=== PATIENT | female | born 2000 | race Caucasian/White ===

== ENCOUNTER 2018-05-21 13:10 | Emergency (ER) | payer OTHER, SELFPAY ==
[2018-05-21 13:25] VITALS: BP 111/57; PULSE 82; RESP 16; TEMP 36.7; O2SAT 99
--- NOTE | 2018-05-21 14:38 | W.ED.GENAD ---
Discharge Plan Disposition Patient Disposition: HOME Discharge Details Chief Complaint: Trauma Clinical Impression: Shoulder subluxation, left, Cervical strain, acute Primary Care Provider: Bess,Local ED Provider: Peng Hastings Home Meds and New Rx's Prescriptions: Continued bupropion HCl 100 mg Tablet 100 mg PO DAILY RF: 0 albuterol sulfate 90 mcg/actuation Hfa Aerosol Inhaler 2 puff INHALATION Q6H PRNRF: 0 Discharge Instructions Instructions: Cervical Strain (ED), Shoulder Sprain (ED) Additional Instructions: Please use shoulder sling for the next 1 week. Be sure to remove your arm from the sling and perform pendulum exercises as discussed a few times a day. If pain persist after this week, please follow-up with your doctor or bombsight specialist. Where neck brace as needed for comfort. No sports or physical activities until symptoms completely resolved. Please take ibuprofen over the counter - dose according to label. Please contact your primary care physician to arrange follow-up. Return to the ER for any worsening or new concerning symptoms. Stand Alone Forms: Work Release Discharge Data Discharge Date/Time-TO BE ENTERED AT DEPARTURE: 05/21/18 14:58 Medical Decision Making 17-year-old female here after fall while snowboarding yesterday with injury to her left shoulder. Patient has some tenderness in her left posterior lateral paraspinal low cervical muscles. She has no midline spinal tenderness. Cervical spine cleared. Suspect strain. Patient has no left shoulder deformity or focal tenderness. There is no swelling. She has good range of motion. I do not believe imaging is indicated. Suspect shoulder subluxation. Will provide sling. Discussed pendulum exercises and anti-inflammatory medications. Usual customary discharge instructions were provided. HPI General Mode of arrival: ambulatory. Date/Time Provider Initiated Documentation: 05/21/18 13:26. Limitations to Documentation: no limitations. Information obtained by: patient. HPI Narrative: 17-year-old female presents 1 day after fall while snowboarding with chief complaint of left shoulder pain. Patient notes she fell forward and landed on her chest and believe she popped her left shoulder outbut that it popped back in immediately after injury. Pain is mild. Pain is worse with movement of her shoulder. No associated numbness or weakness. Patient did hit her head and was not wearing a helmet. She did not lose consciousness. She has no headache. No midline posterior neck pain. She does have some pain lateral left neck. Related Data Home Medications Medication Instructions Recorded Confirmed albuterol sulfate 2 puff INHALATION Q6H PRN 05/21/18 05/21/18 bupropion HCl 100 mg PO DAILY 05/21/18 05/21/18 Allergies Allergy/AdvReac Type Severity Reaction Status Date / Time pistachio nut Allergy Swelling/Ed Unverified 05/21/18 13:23 leydi General Stated Complaint: Trauma TIO: 3 Review of Systems Cardiovascular Denies chest pain and Denies dyspnea Respiratory Denies dyspnea Gastrointestinal Denies abdominal pain and Reports nausea Musculoskeletal Reports as per HPI and Denies numbness Neurologic Denies numbness and Denies paresthesias PFSH Social History Smoking and Tabacco status: Never Exam Const General: cooperative and no acute distress HENMT Head: normocephalic and atraumatic Mouth: moist mucous membranes Neck Neck: full ROM, trachea midline, supple and tender (Mild tenderness left lower posterior lateral para spinal) Resp Auscultation: clear to auscultation bilaterally, no rales, no rhonchi and no wheezes Cardio Rate: regular rate and not tachycardic Rhythm: regular rhythm GI Palpation: soft, not firm, no guarding, no masses, not rigid and nontender Skin General skin exam: no rashes or lesions noted Neuro General: alert, awake, oriented x3 and tone normal Extrem General: no edema Left upper extremity: shoulder/upper arm Details: axillary nerve sensory function normal and normal ROM (With pain on rotation and hyperextension); no tenderness, no swelling, no crepitus and no deformity Course Vital Signs Temperature 36.7 C 05/21/18 13:25 Pulse 82 05/21/18 13:25 Respiratory Rate 16 05/21/18 13:25 Blood Pressure 111/57 L 05/21/18 13:25 Pulse Oximetry 99 05/21/18 13:25 Temperature 36.7 C 05/21/18 13:25 Temperature Source Temporal Artery Scan 05/21/18 13:25 Pulse 82 05/21/18 13:25 Respiratory Rate 16 05/21/18 13:25 Respiratory Effort Non-Labored 05/21/18 13:25 Blood Pressure 111/57 L 05/21/18 13:25 Blood Pressure Position Sitting 05/21/18 13:25 Pulse Oximetry 99 05/21/18 13:25 Oxygen Delivery Method Room Air 05/21/18 13:25 Oxygen Flow Rate 0 05/21/18 13:25 Pain Level 7 05/21/18 13:25
--- NOTE | 2018-05-21 14:47 | ED.GENADUL_ITS ---
Discharge Plan Disposition Patient Disposition: HOME Discharge Details Chief Complaint: Trauma Clinical Impression: Shoulder subluxation, left, Cervical strain, acute Primary Care Provider: Bess,Local ED Provider: Peng Hastings Home Meds and New Rx's Prescriptions: Continued bupropion HCl 100 mg Tablet 100 mg PO DAILY RF: 0 albuterol sulfate 90 mcg/actuation Hfa Aerosol Inhaler 2 puff INHALATION Q6H PRNRF: 0 Discharge Instructions Instructions: Cervical Strain (ED), Shoulder Sprain (ED) Additional Instructions: Please use shoulder sling for the next 1 week. Be sure to remove your arm from the sling and perform pendulum exercises as discussed a few times a day. If pain persist after this week, please follow-up with your doctor or hazardous waste management specialist. Where neck brace as needed for comfort. No sports or physical activities until symptoms completely resolved. Please take ibuprofen over the counter - dose according to label. Please contact your primary care physician to arrange follow-up. Return to the ER for any worsening or new concerning symptoms. Stand Alone Forms: Work Release Discharge Data Discharge Date/Time-TO BE ENTERED AT DEPARTURE: 05/21/18 14:58 Medical Decision Making 17-year-old female here after fall while snowboarding yesterday with injury to her left shoulder. Patient has some tenderness in her left posterior lateral paraspinal low cervical muscles. She has no midline spinal tenderness. Cervical spine cleared. Suspect strain. Patient has no left shoulder deformity or focal tenderness. There is no swelling. She has good range of motion. I do not believe imaging is indicated. Suspect shoulder subluxation. Will provide sling. Discussed pendulum exercises and anti-inflammatory medications. Usual customary discharge instructions were provided. HPI General Mode of arrival: ambulatory . Date/Time Provider Initiated Documentation: 05/21/18 13:26 . Limitations to Documentation: no limitations . Information obtained by: patient . HPI Narrative: 17-year-old female presents 1 day after fall while snowboarding with chief complaint of left shoulder pain. Patient notes she fell forward and landed on her chest and believe she popped her left shoulder outbut that it popped back in immediately after injury. Pain is mild. Pain is worse with movement of her shoulder. No associated numbness or weakness. Patient did hit her head and was not wearing a helmet. She did not lose consciousness. She has no headache. No midline posterior neck pain. She does have some pain lateral left neck. Related Data Home Medications Medication Instructions Recorded Confirmed albuterol sulfate 2 puff INHALATION Q6H PRN 05/21/18 05/21/18 bupropion HCl 100 mg PO DAILY 05/21/18 05/21/18 Allergies Allergy/AdvReac Type Severity Reaction Status Date / Time pistachio nut Allergy Swelling/Ed Unverified 05/21/18 13:23 leydi General Stated Complaint: Trauma TIO: 3 Review of Systems Cardiovascular Denies chest pain and Denies dyspnea Respiratory Denies dyspnea Gastrointestinal Denies abdominal pain and Reports nausea Musculoskeletal Reports as per HPI and Denies numbness Neurologic Denies numbness and Denies paresthesias PFSH Social History Smoking and Tabacco status: Never Exam Const General: cooperative and no acute distress HENMT Head: normocephalic and atraumatic Mouth: moist mucous membranes Neck Neck: full ROM, trachea midline, supple and tender (Mild tenderness left lower posterior lateral para spinal) Resp Auscultation: clear to auscultation bilaterally, no rales, no rhonchi and no wheezes Cardio Rate: regular rate and not tachycardic Rhythm: regular rhythm GI Palpation: soft, not firm, no guarding, no masses, not rigid and nontender Skin General skin exam: no rashes or lesions noted Neuro General: alert, awake, oriented x3 and tone normal Extrem General: no edema Left upper extremity: shoulder/upper arm Details: axillary nerve sensory function normal and normal ROM (With pain on rotation and hyperextension); no tenderness, no swelling, no crepitus and no deformity Course Vital Signs Temperature 36.7 C 05/21/18 13:25 Pulse 82 05/21/18 13:25 Respiratory Rate 16 05/21/18 13:25 Blood Pressure 111/57 L 05/21/18 13:25 Pulse Oximetry 99 05/21/18 13:25 Temperature 36.7 C 05/21/18 13:25 Temperature Source Temporal Artery Scan 05/21/18 13:25 Pulse 82 05/21/18 13:25 Respiratory Rate 16 05/21/18 13:25 Respiratory Effort Non-Labored 05/21/18 13:25 Blood Pressure 111/57 L 05/21/18 13:25 Blood Pressure Position Sitting 05/21/18 13:25 Pulse Oximetry 99 05/21/18 13:25 Oxygen Delivery Method Room Air 05/21/18 13:25 Oxygen Flow Rate 0 05/21/18 13:25 Pain Level 7 05/21/18 13:25
== END 2018-05-21 14:58 | disposition home or self-care (01) ==
PROVIDERS: Emergency Provider Student in an Organized Health Care Education/Training Program
DX: S16.1XXA Strain of muscle, fascia and tendon at neck level, initial encounter (principal); S43.002A Unspecified subluxation of left shoulder joint, initial encounter; V00.311A Fall from snowboard, initial encounter; Y93.23 Activity, snow (alpine) (downhill) skiing, snowboarding, sledding, tobogganing and snow tubing
CPT/HCPCS: 99283; L0120; L0172; L3650

== ENCOUNTER 2019-02-06 12:00 | Observation (INO) | payer OTHER, SELFPAY ==
[2019-02-06] VITALS (14 sets, daily range): BP systolic 101–131; BP diastolic 63–95; PULSE 74–120; RESP 14–20; TEMP 36.7–37.2; O2SAT 98–100
[2019-02-06 12:18] LABS: Bilirubin Negative (Negative); Blood Negative (Negative); Clarity Clear (Clear); Glucose Negative (Negative); Ketones Negative (Negative); Leukocyte Esterase Trace (Negative); Nitrite Negative (Negative); Urobilinogen 0.2 EU/dL (Up TO 0.2)
[2019-02-06 12:28] LABS: Bacteria Few HPF (Negative); C & S Indicated? No/Sq. Contamination; Casts Negative LPF (Negative); Crystals Negative HPF (Negative); Epithelial Cells Moderate HPF (Negative); Mucus Trace (Negative); RBC Negative (0-2); WBC 0-2 HPF (0-5)
--- NOTE | 2019-02-06 12:41 | ED.GENADUL_ITS ---
Discharge Plan Disposition Patient Disposition: HOME Condition: Good Discharge Details Chief Complaint: Abd Prob Clinical Impression: Acute appendicitis Admit Date/Time: 02/06/19 21:35 Admit Provider: Shoshana Green Attending Provider: Shoshana Green Primary Care Provider: Bess,[facility] ED Provider: Joe Rodriguez Discharge Data Discharge Date/Time-TO BE ENTERED AT DEPARTURE: 02/06/19 19:10 Medical Decision Making <BUDDY Swan - Last Filed: 02/07/19 16:32> Is a very pleasant 18-year-old patient who does have a history of ovarian cyst who presents with right lower quadrant tenderness which does feel similar to previous ovarian cyst pain. Patient reports lower abdominal pain which she noted 3 days ago lasting several hours which did improve. No associated changes in bowels, fevers chills. Patient did report mild nausea associated. Pain improved 3 days ago she did have mild food aversion since that time. Patient reports today return of abdominal discomfort. Worse with ambulating, worse when sitting in the car hitting bumps. Patient reports mild improvement when laying still. No p.o. intake today, decreased appetite, mild nausea present without vomiting. Again no fevers or chills. On exam patient has notable right lower quadrant tenderness. Denies vaginal discharge or bleeding. Would prefer to decline pelvic exam at this time. Patient is on control. Denies urinary symptoms associated. Labs ordered as well as ultrasound initially to identify ovary. Patient has a notable leukocytosis. Patient's initial ultrasound does not reveal obvious ovarian cyst or torsion on the right. Given patient's leukocytosis we will order CT scan for concern of possible appendicitis. Patient signed out pending CT scan with IV and oral contrast. <BUDDY Reeves - Last Filed: 02/06/19 21:55> Patient received in signout from Sandi Kelley PA-C. See her note for complete HPI and PE details. In brief, patient is a 18-year-old female with no significant past medical history other than ovarian cyst who presents to the emergency department with right lower quadrant abdominal pain for the last 3 days intermittent in nature. She denies any fevers. Her white blood cell count came back elevated at 20,000. She had a pelvic ultrasound that appeared normal without any ovarian/uterine pathology. Patient deferred pelvic exam. Decided to pursue CT scan which is positive for early appendicitis. Discussed findings with radiology. I reviewed case with Dr. Schulte from general surgery. She was also able to review the images as well. Plan is to send patient to the operating room for appendectomy. Patient already received his Zosyn 4.5 mg IV prior to CT scan. Patient and family made aware about CT findings. HPI <BUDDY Swan - Last Filed: 02/07/19 16:32> General Date/Time Provider Initiated Documentation: 02/06/19 12:04 . HPI Narrative: Is a 18-year-old patient who presents to the emergency room for right lower quadrant pain. Patient reports lower abdominal pain which began 3 days ago. Lasted a few hours then resolved. Patient reported accompanying nausea which also improved. Patient reports she did have mild persistent appetite eversion in the last few days with no associated vomiting or diarrhea. Patient denies headache or dizziness. Denies fever or chills. Patient reports today while at school onset of pain for the last few hours in the right lower part of her abdomen. Patient does also report worsening pain with ambulation or walking. Patient does report mild radiation toward her back. No new vaginal discharge or bleeding. Patient does report a history of ovarian cyst and is concerned with similar. No urinary urgency, frequency or dysuria. Patient is currently on control. Related Data Home Medications Medication Instructions Recorded Confirmed albuterol sulfate 2 puff INHALATION Q6H PRN 05/21/18 02/06/19 bupropion HCl 100 mg PO DAILY 05/21/18 02/06/19 Loestrin Fe 1.5/30 (28-Day) 1 tab PO DAILY 02/06/19 02/06/19 hydrocodone-acetaminophen 1 tab PO Q4H PRN #20 tab 02/06/19 sertraline [Zoloft] 25 mg PO DAILY 02/06/19 02/06/19 Previous Rx's Medication Instructions Recorded hydrocodone-acetaminophen 1 tab PO Q4H PRN #20 tab 02/06/19 Allergies Allergy/AdvReac Type Severity Reaction Status Date / Time pistachio nut Allergy Swelling/Ed Unverified 02/06/19 12:16 leydi General Stated Complaint: Abd Prob TIO: 3 Review of Systems <BUDDY Swan - Last Filed: 02/07/19 16:32> All systems reviewed & are unremarkable except as noted in HPI and below Constitutional Constitutional: Denies chills, Denies fatigue, Denies fever(s) and Denies headache(s) ENT Ears, Nose, Mouth, and Throat: Denies headache(s), Denies sinus pain and Denies sore throat Gastrointestinal Gastrointestinal: Reports abdominal pain, Reports cramping, Denies diarrhea, Reports nausea and Denies vomiting Genitourinary Genitourinary: Denies dysuria and Denies urinary urgency Neurologic Neurologic: Denies headache(s) Endocrine Endocrine: Denies fatigue PFSH <BUDDY Swan Last Filed: 02/07/19 16:32> Social History Smoking/Tobacco Use Status: Current-Occasional Tobacco Type: cigarettes Alcohol Intake: current Alcohol Intake frequency: a few times a week Drug use: Never Substance use type: does not use Do you feel safe at home: Yes Do you feel safe in your relationship?: Yes Exam <BUDDY Swan Last Filed: 02/07/19 16:32> Narrative Exam Narrative: CONST: Healthy appearing patient, in no acute distress. Well hydrated. Alert and alert. NECK: Normal visual inspection. FROM. No lymphadenopathy. Trachea midline. No Midline tenderness. CHEST: Normal insepection of the chest. RESP: Normal respiratory effort. Speaking full sentences. No cough. No wheezing. No retractions. Clear to auscaltation. Breath sound equal and present bilaterally. CARDIO: No JVD. Normal PMI. Regular Rate. Regular Rhythm. Normal peripheral pulses. GI: No distension. Soft. Right lower quadrant tenderness with palpation. Bowel sounds present in all 4 quadrants. No rebound. No gaurding. No obvious peritoneal signs. MUSCULOSKELETAL: Normal Gait. FROM of all extremities. Distal neurovascularly intact. Sensation intact distally. No CVA tenderness bilaterally SKIN: Normal. Dry. No rashes. NEURO: Alert and awake. Speech clear. PSYCH: Normal affect. Cooperative. Course <BUDDY Swan Last Filed: 02/07/19 16:32> Vital Signs Vital signs: Vital Signs Temperature 37.1 C 02/06/19 12:03 Pulse 81 02/06/19 12:03 Respiratory Rate 15 02/06/19 12:03 Blood Pressure 112/77 02/06/19 12:03 Pulse Oximetry 98 02/06/19 12:03 Temperature 37.1 C 02/06/19 12:03 Temperature Source Temporal Artery Scan 02/06/19 12:03 Pulse 81 02/06/19 12:03 Respiratory Rate 15 02/06/19 12:03 Respiratory Effort Non-Labored 02/06/19 12:08 Blood Pressure 112/77 02/06/19 12:03 Blood Pressure Position Sitting 02/06/19 12:03 Pulse Oximetry 98 02/06/19 12:03 Oxygen Delivery Method Room Air 02/06/19 12:03 Oxygen Flow Rate 0 02/06/19 12:03 Pain Level 8 02/06/19 12:03 Lab/Test Results Lab/Test Results: Laboratory Tests Range/Units 02/06/19 12:12 Urine Color (Yellow) Yellow Urine Clarity (Clear) Clear Urine pH (5-8) 6.0 Ur Specific [place] (1.005-1.025) 1.020 Urine Protein (Negative) mg/dL Negative Urine Ketones (Negative) mg/dL Negative Urine Blood (Negative) Negative Urine Nitrite (Negative) Negative Urine Bilirubin (Negative) Negative Urine Urobilinogen (Up TO 0.2) EU/dL 0.2 Ur Leukocyte Esterase (Negative) Trace H Urine RBC (0-2) Negative Urine WBC (0-5) HPF 0-2 Ur Epithelial Cells (Negative) HPF Moderate Urine Crystals (Negative) HPF Negative Urine Bacteria (Negative) HPF Few Urine Casts (Negative) LPF Negative Urine Mucus (Negative) Trace Ur Culture Indicated? No/sq. contamination Urine Glucose (Negative) mg/dL Negative POC- Test(urine) Negative Sign Out <BUDDY Swan - Last Filed: 02/07/19 16:32> Sign Out Data: Sign Out Comment: Signout pending CT with IV and oral contrast for rule out of appendicitis due to right lower quadrant pain with white count of 19 K Last updated by Sandi Suazo PA at 02/06/19 16:24
[2019-02-06] MEDS: Normal Saline 1,000 ML 1000 ML IV (12:45)
[2019-02-06 13:06] LABS: ALT 21 U/L (14-59); AST 17 U/L (15-37); Abs Immature Grans 0.08 k/cumm (0.0-0.09); Albumin 4.4 g/dL (3.4-5.0); Alkaline Phosphatase 74 U/L (46-116); Anion Gap 12.2 mmol/L (3-11); BUN 10 mg/dL (7-18); Basophils % 0.3; Bilirubin, Total 0.4 mg/dL (0.2-1.0); CO2 25.8 mmol/L (21.0-32.0); CREATININE 0.79 mg/dL (0.55-1.02); Calcium 9.5 mg/dL (8.5-10.1); Chloride 100 mmol/L (98-107); Eosinophils % 1.1; Glucose 88 mg/dL (70-100); HGB 14.7 g/dL (12.0-15.5); Immature Grans % 0.4; Lipase 92 U/L (73-393); Lymphocytes % 15.1; Mean Corp. HGB Concentration 33.4 g/dL (32.0-36.0); Mean Corpuscular Hemoglobin 28.6 pg (27.0-33.0); Mean Corpuscular Volume 85.6 fL (80-95); Monocytes % 4.8; Neutrophils % 78.3; Platelet Count 324 x1000/uL (130-400); Potassium 3.5 mmol/L (3.5-5.1); RBC 5.14 m/cumm (4.00-5.20); RBC Distribution Width 12.8 % (11.7-14.6); Sodium 138 mmol/L (136-145); Total Protein 8.5 g/dL (6.4-8.2); White Blood Cell Count 19.64 k/cumm (4.4-10.8)
[2019-02-06 13:15] LABS: Absolute Basophil Count 0.06 k/cumm (0.0-0.2); Absolute Eosinophil Count 0.22 k/cumm (0.0-0.7); Absolute Lymphocyte Count 2.97 k/cumm (1.2-3.4); Absolute Monocyte Count 0.94 k/cumm (0.11-0.7); Absolute Neutrophil Count 15.38 k/cumm (1.2-6.7)
[2019-02-06] MEDS: Normal Saline 1,000 ML 125 ML IV (13:45)
[2019-02-06 13:58] LABS: HCG Qual (Serum) Negative
--- NOTE | 2019-02-06 15:00 | DI.US_ITS ---
EXAM: US PELVIS TRANSVAGINAL CLINICAL HISTORY: RLQ pain r/o ovarian cyst/torsion or appendicitis TECHNIQUE: Ultrasound performed using standard protocol. Pelvic ultrasound was performed transabdo minally and transvaginally. Please see the accompanying data sheet for measurements of pelvic structu res. COMPARISON: No exams were available for comparison FINDINGS: The appendix is presumptively identified as a blind-ending viscus in the right lower quadrant and is of normal diameter at 5 millimeters. Uterus is unremarkable in appearance. Left ovary nonvisualized . Right ovary has a normal follicular appearance. No free fluid identified in the cul-de-sac. IMPRESSION: Negative pelvic ultrasound. Left ovary nonvisualized. Appearance of the presumptive appendix is unremarkable.
[2019-02-06] MEDS: Ondansetron 4 MG/2 ML VIAL IVP (15:50)
[2019-02-06 16:28] LABS: Lactate 0.8 mmol/L (0.6-1.4)
[2019-02-06] MEDS: PIPERACILLIN/TAZO 4.5 GM in Normal Saline 100 ML IVPB (16:35)
[2019-02-06] MEDS: Normal Saline Flush 10 ML SYR IVP (16:57)
[2019-02-06] MEDS: Omnipaque 350 MG/ML 100 ML BTL IJ (16:57)
--- NOTE | 2019-02-06 17:00 | DI.CT_ITS ---
EXAM: CT ABDOMEN PELVIS W CLINICAL HISTORY: r/o appendicitis, RLQ PAIN TECHNIQUE: Post IV and oral contrast. COMPARISON: US PELVIS TRANSVAGINAL from 02/06/2019 FINDINGS: The appendix projects medially and superiorly in the right lower quadrant. The proximal appendix co ntains contrast and appears normal in diameter. The distal appendix measures up to 7 millimeters and is low density which could indicate fluid. There is no definite stranding in the surrounding fat. There are a few small right lower quadrant lymph nodes. The findings could represent early distal george endicitis. The small bowel and colon are unremarkable. There is a trace, physiologic amount of free fluid. The ovaries and uterus appear normal. The lung bases are clear. The liver, gallbladder, spleen, pancreas, kidneys and adrenals appear norm al. No bony abnormalities are seen. IMPRESSION: Mild dilatation of the mid to distal appendix could indicate early appendicitis. Clinical correlatio n is recommended.
--- NOTE | 2019-02-06 17:12 | DI.VRAD_ITS ---
Addendum created by Lori Fields MD on 02/06/2019 5:12:46 PM EST I discussed case findings with Lizzeth 02/06/2019 5:12 PM EST. Initial report created on 02/06/2019 5:11:28 PM EST PROCEDURE INFORMATION: Exam: CT Abdomen And Pelvis With Contrast Exam date and time: 02/06/2019 4:51 PM Clinical history: 18 years old, female; Other: R/O appendicitis TECHNIQUE: Imaging protocol: Computed tomography of the abdomen and pelvis with intravenous contrast. Radiation optimization: All CT scans at this facility use at least one of these dose optimization techniques: automated exposure control; mA and/or kV adjustment per patient size (includes targeted exams where dose is matched to clinical indication); or iterative reconstruction. Contrast material: OMNIPAQUE 350; Contrast volume: 100 ml; Contrast route: IV; Other technique: GI contrast given. COMPARISON: US PELVIS TRANSVAGINAL 02/06/2019 3:13 PM FINDINGS: Liver: Normal. No mass. Gallbladder and bile ducts: Normal. No calcified stones. No ductal dilation. Pancreas: Normal. No ductal dilation. Spleen: Normal. No splenomegaly. Adrenals: Normal. No mass. Kidneys and ureters: Normal. No hydronephrosis. Stomach and bowel: See Appendix Finding. Appendix: The appendix is identified. The distal portion is fluid-filled series 4 images 53-56. It measures up to 8 mm in diameter. Intraperitoneal space: Unremarkable. No free air. No significant fluid collection. Vasculature: Unremarkable. No abdominal aortic aneurysm. Lymph nodes: There is mild to moderate pericecal adenopathy. Bladder: Unremarkable as visualized. Reproductive: Unremarkable as visualized. Bones/joints: Unremarkable. No acute fracture. Soft tissues: Unremarkable. IMPRESSION: Findings of concern for early, acute tip appendicitis. If there is clinical concern for acute appendicitis, correlation with laboratory and physical findings suggested to determine need for surgical consultation. COMMENT: Preliminary interpretation is based on receipt of 1186 image(s). A final report will be issued subsequently. Dictated and Authenticated by: Lori Fields MD. Ordering:CHINO Junior MD
--- NOTE | 2019-02-06 19:02 | HPE_ITS ---
Date of service: 02/06/19 Time of Service: 19:03 Assessment and Plan Assessment and plan (1) Appendicitis: Status: Acute Assessment and plan: Her symptoms are not completely typical for appendicitis, but the elevated WBC count and CT are consistent with early appendicitis. I advised laparoscopic appendectomy. The procedure and risks of infection, bleeding, hernia, injury to other organs discussed. It is possible the appendix will be normal but will be removed. We also discussed the alternative of antibiotics, but the recurrence rate is high enough that surgery is better option for her. She agrees to proceed Qualifiers: Appendicitis type: acute appendicitis Appendicitis perforation presence: without perforation Appendicitis abscess presence: without abscess History of Present Illness Narrative: This patient presented to the ER today with a three day history of abdominal pain. It started generalized and then migrated to the RLQ. It has been off and on and she currently denies pain. No fever, no dysuria, no change in bowel habits. Has had a prior ovarian cyst. Appetite has been poor and she has had nausea but no vomiting. Pelvic US normal, CT showed mild inflammation of the tip of the appendix. Review of Systems All systems reviewed & are unremarkable except as noted in HPI and below PFSH Social History Smoking/Tobacco Use Status: Current-Occasional Tobacco Type: cigarettes Alcohol Intake: current Alcohol Intake frequency: a few times a week Drug use: Never Substance use type: does not use Do you feel safe at home: Yes Do you feel safe in your relationship?: Yes Meds Home Medications and Allergies Home Medications Medication Instructions Recorded Confirmed Type albuterol sulfate 2 puff INHALATION Q6H PRN 05/21/18 02/06/19 History bupropion HCl 100 mg PO DAILY 05/21/18 02/06/19 History norethindrone-e.estradiol-iron 1 tab PO DAILY 02/06/19 02/06/19 History [Loestrin Fe 1.5/30 (28-Day)] sertraline [Zoloft] 25 mg PO DAILY 02/06/19 02/06/19 History Allergies Allergy/AdvReac Type Severity Reaction Status Date / Time pistachio nut Allergy Swelling/Ed Unverified 02/06/19 12:16 leydi Exam Const General: healthy appearing and not in acute distress Nutritional Appearance: well nourished Orientation: oriented x3 HENMT Head: normal to inspection Eyes Sclera: sclerae normal Pupils: PERRL Neck Neck: no lymphadenopathy Thyroid: thyroid normal Resp Effort & Inspection: normal respiratory effort Auscultation: clear to auscultation bilaterally and no wheezes Cardio Rate: regular rate Rhythm: regular rhythm GI Inspection: non-distended Palpation: soft, no hepatosplenomegaly, no hernias and tender in the RLQ Skin General skin exam: no rashes or lesions noted Neuro General: alert Cognition: normal cognition Extrem General: normal to inspection Psych Affect: normal affect Attitude: cooperative Results Labs Result diagrams: 02/06/19 12:45 02/06/19 12:45 Labs: Laboratory Results - last 24 hr 02/06/19 02/06/19 02/06/19 12:12 12:45 12:45 WBC 19.64 H RBC 5.14 Hgb 14.7 Hct 44.0 MCV 85.6 MCH 28.6 MCHC 33.4 RDW 12.8 Plt Count 324 MPV 11.0 Immature Gran % 0.4 Neutrophils % 78.3 Lymphocytes % 15.1 Monocytes % 4.8 Eosinophils % 1.1 Basophils % 0.3 Absolute Neutrophils 15.38 H Absolute Lymphocytes 2.97 Absolute Monocytes 0.94 H Absolute Eosinophils 0.22 Absolute Basophils 0.06 Sodium 138 Potassium 3.5 Chloride 100 Carbon Dioxide 25.8 Anion Gap 12.2 H BUN 10 Creatinine 0.79 Estimated GFR/1.73 m2 >= 60.00 Glucose 88 Lactate Calcium 9.5 Total Bilirubin 0.4 AST 17 ALT 21 Alkaline Phosphatase 74 Total Protein 8.5 H Albumin 4.4 Lipase 92 Serum HCG, Qual Urine Color Yellow Urine Clarity Clear Urine pH 6.0 Ur Specific [place] 1.020 Urine Protein Negative Urine Ketones Negative Urine Blood Negative Urine Nitrite Negative Urine Bilirubin Negative Urine Urobilinogen 0.2 Ur Leukocyte Esterase Trace H Urine RBC Negative Urine WBC 0-2 Ur Epithelial Cells Moderate Urine Crystals Negative Urine Bacteria Few Urine Casts Negative Urine Mucus Trace Ur Culture Indicated? No/sq. contamination Urine Glucose Negative 02/06/19 02/06/19 12:45 16:23 WBC RBC Hgb Hct MCV MCH MCHC RDW Plt Count MPV Immature Gran % Neutrophils % Lymphocytes % Monocytes % Eosinophils % Basophils % Absolute Neutrophils Absolute Lymphocytes Absolute Monocytes Absolute Eosinophils Absolute Basophils Sodium Potassium Chloride Carbon Dioxide Anion Gap BUN Creatinine Estimated GFR/1.73 m2 Glucose Lactate 0.8 Calcium Total Bilirubin AST ALT Alkaline Phosphatase Total Protein Albumin Lipase Serum HCG, Qual Negative Urine Color Urine Clarity Urine pH Ur Specific [place] Urine Protein Urine Ketones Urine Blood Urine Nitrite Urine Bilirubin Urine Urobilinogen Ur Leukocyte Esterase Urine RBC Urine WBC Ur Epithelial Cells Urine Crystals Urine Bacteria Urine Casts Urine Mucus Ur Culture Indicated? Urine Glucose Last Vital Signs Temp 99 F 02/06/19 18:55 Pulse 78 02/06/19 18:55 Resp 16 02/06/19 18:55 BP 116/79 02/06/19 18:55 Pulse Ox 100 02/06/19 18:55
--- NOTE | 2019-02-06 19:09 | W.PM.DSUDISC ---
Discharge Plan Disposition Patient Disposition: HOME Condition: Good Discharge Details Chief Complaint: Abd Prob Clinical Impression: Acute appendicitis Reason For Visit: Appendicitis Admit Date/Time: 02/06/19 21:35 Admit Provider: Shoshana Geren Attending Provider: Shoshana Green Primary Care Provider: Bess,[facility] ED Provider: Joe Rodriguez Home Meds and New Rx's Prescriptions: New hydrocodone-acetaminophen 5-325 mg tablet 1 tab PO Q4H PRN (Reason: pain) Qty: 20 RF: 0 Continued bupropion HCl 100 mg Tablet 100 mg PO DAILY RF: 0 albuterol sulfate 90 mcg/actuation Hfa Aerosol Inhaler 2 puff INHALATION Q6H PRNRF: 0 Loestrin Fe 1.5/30 (28-Day) 1.5 mg-30 mcg (21)/75 mg (7) Tablet 1 tab PO DAILY RF: 0 sertraline [Zoloft] 25 mg Tablet 25 mg PO DAILY RF: 0 Discharge Instructions Instructions: Appendicitis (DC) Additional Instructions: The top bandage can be removed tomorrow. The steri strips will usually stick for about a week. When the edges start to curl up, they can be removed. It is okay to shower tomorrow, the water can run over the steri strips Do not swim or soak in a tub for two weeks Call for any concerns including fever, increased pain, vomiting, incision redness or drainage. Do not lift more than 15 pounds for two weeks. Walking and stairs are fine. Do not drive if on narcotic pain meds or if limited by pain. May use Tylenol alternating with ibuprofen for pain control. Ice is also an option. The maximum dose for Tylenol is 4000 mg/day. May use ibuprofen 800 mg every 8 hours as needed. If concerned about constipation, you may use a stool softener or milk of magnesia. Stand Alone Forms: Nursing Discharge Form Referrals: Shoshana Green MD [ [facility] STAFF PHYSICIAN] - (Call for a postop appointment - to be seen in 7-10 days) Activity:: Do not lift more than 15 pounds for two weeks Equipment/Supplies:: No Equipment Needed Diet:: As Tolerated Discharge Orders Discharge Orders: Discharge Order (Routine); Ordered 02/06/19 Ordered By: Shoshana Green Discharge Data Discharge Date/Time-TO BE ENTERED AT DEPARTURE: 02/06/19 22:50 DS: Diagnosis Discharge Diagnosis (1) Appendicitis: Status: Resolved
--- NOTE | 2019-02-06 19:17 | NUR.NOTE ---
Transported to PACU via , all belongings with pt.
[2019-02-06] MEDS: Lactated Ringers 1,000 ML 80 ML IV (19:30)
--- NOTE | 2019-02-06 20:43 | APP_PTH ---
PATIENT: SOO PARADA LOC: U#:[id number] AGE/SX: 18/F ROOM: 207 RE02/06/[address]: Shoshana Geren MD : [id number] BED: A DIS: 02/06/2019 SPEC #: [id number] RECD: 02/07/19 12:47 STATUS: FLORENCIO REQ #: [id number] RANJIT: 02/06/19 20:[address]: Shoshana Green DEPT: Surgical Specimen RECD BY: Sapphire Noyola ENTERED: 02/07/19 12:48 SP TYPE: Appendix OTHR DR: No Local Tissues: 1 - APPENDIX NOT INCIDENTAL Procedures: GROSS AND MICRO LEVEL 3 Comments: [id number]
[2019-02-06] MEDS: Bupivacaine 0.5% Pres-Free 30 ML VIAL (20:45)
[2019-02-06] MEDS: fentaNYL 100 MCG/2 ML VIAL IVP (21:37)
[2019-02-06] MEDS: HYDROcodone 5/Acetaminophen 325 TAB PO (22:34)
--- NOTE | 2019-02-07 10:05 | ROE_ITS ---
DATE OF PROCEDURE: February 06, 2019 PREOPERATIVE DIAGNOSIS: Appendicitis. POSTOPERATIVE DIAGNOSIS: Acute inflamed appendicitis. PROCEDURE: Laparoscopic appendectomy. SURGEON: Shoshana Green M.D. ANESTHESIA: Local and General. INDICATIONS: This is a 18-year-old female with right lower quadrant pain for approximately three day s. She had a white blood cell count of 20,[address] scan that suggested early appendicitis. PROCEDURE: She was placed supine on the operating table and after induction of general anesthetic wa s prepped and draped sterilely. A small infraumbilical incision was made after injecting local anest hetic. The peritoneum was entered bluntly with a finger. #0 Vicryl sutures were placed on either si de of the fascia and the Chan port held in place with these. A C02 pneumoperitoneum was begun. A 5 mm port was placed in the suprapubic and right upper quadrant locations, after injecting local anes thetic, under direct visualization. The appendix was definitely thickened and inflamed along its dis paloma half. The base was normal. An opening was made in the mesoappendix and the laparoscopic stapler using the bowel load was used to divide the appendix from the cecum. The mesoappendix was taken luis manuel n using the vascular staple load. The appendix was removed through the umbilical incision in an Endo Catch bag. Inspection of the operative site revealed a small amount of bleeding along the vascular s taple line, which was controlled nicely with clips. The region was irrigated and suctioned clean. T here was good hemostasis. The C02 was released and the ports removed. The #0 Vicryl sutures were ti ed together at the fascia with good closure and the skin was closed at all port sites with a #4-0 Mon ocryl subcuticular stitch. She tolerated the procedure well and was stable to recovery.
== END 2019-02-06 22:50 | disposition home or self-care (01) ==
LOC: ER 19:11 → DSU 20:45 → MS 02-07 09:37
PROVIDERS: Physician Assistant; Admitting Provider Surgery; Emergency Provider Physician Assistant; Visit Provider Surgery
PROC: 0DTJ4ZZ Resection of Appendix, Percutaneous Endoscopic Approach (ICD-10-PCS; CPT 44970; principal; 2019-02-06 19:20)
DX: K35.890 Other acute appendicitis without perforation or gangrene (principal); Z72.0 Tobacco use
CPT/HCPCS: 44970; 36415; 80053; 81025; 83690; 96361; 96365; 96375; 99223; 99285; 74177; 76830; 76856; 81003; 81015; 83605; 84703; 85025; 88304; 99284; J1100; J1885; J2250; J2405; J2543; J3010; J3490

== ENCOUNTER 2019-05-07 18:14 | Emergency (ER) | payer OTHER, SELFPAY ==
[2019-05-07 18:22] VITALS: BP 108/69; PULSE 98; RESP 18; TEMP 36.8; O2SAT 98
--- NOTE | 2019-05-07 18:26 | ED.GENADUL_ITS ---
Discharge Plan Disposition Patient Disposition: HOME Condition: Good Discharge Details Chief Complaint: AnimalBite Clinical Impression: Dog bite of left arm Primary Care Provider: Bess,Local ED Provider: David Bowens Home Meds and New Rx's Prescriptions: No Action bupropion HCl 100 mg Tablet 100 mg PO DAILY RF: 0 albuterol sulfate 90 mcg/actuation Hfa Aerosol Inhaler 2 puff INHALATION Q6H PRNRF: 0 norethindrone-e.estradiol-iron [Loestrin Fe 1.5/30 (28-Day)] 1.5 mg-30 mcg (21)/75 mg (7) Tablet 1 tab PO DAILY RF: 0 sertraline [Zoloft] 25 mg Tablet 25 mg PO DAILY RF: 0 hydrocodone-acetaminophen 5-325 mg tablet 1 tab PO Q4H PRN (Reason: pain) Qty: 20 RF: 0 Discharge Instructions Instructions: Animal Bite (ED) Additional Instructions: At this time there is no evidence of infection for your arm at all. There is a notable bruise. You can use a warm compress to help this reabsorb quickly. It is imperative that you make sure that the dogs vaccines are up-to-date. If you discover that they are not you need to return immediately for the rabies vaccines that we discussed. If you notice any worsening of your symptoms, or any new symptoms such as vomiting, diarrhea, fever, chills, shortness of breath, chest pain, numbness, weakness, or fainting , please return immediately to the emergency department for reevaluation. Please follow up with your primary care provider as soon as possible for reassessment and reevaluation. As always, it was a pleasure participating in your medical care today. Discharge Data Discharge Date/Time-TO BE ENTERED AT DEPARTURE: 05/07/19 18:41 Medical Decision Making This is a pleasant 18-year-old female who presents for evaluation of her left forearm. She was bit in her left nondominant forearm 2 to 3 days ago by a friend's family dog, no skin was punctured. She has noticed mild bruise since then and want to get it checked out. Exam demonstrates mild bruising on the anterior aspect of the left forearm, no evidence of puncture, tetanus is up-to-date. No redness erythema discharge or drainage whatsoever. Patient believes that the dog's vaccines are up-to-date but she is not certain. I did offer rabies vaccines here, however the patient refused these. I had a very long discussion with her regarding the risks and the high morbidity and mortality of rabies, and she understands this. The patient is able to speak clearly. There is no demonstration of any slurring of speech. There is evidence of clear decision making capacity. Patient is able to ambulate well without any difficulty. There are no signs of ataxia or stumbling motions. She is able to make informed decisions for herself. I did implore the patient to contact the family friend whose dog it was to confirm the vaccine status. I discussed red flags for which to immediately return, and that at any point she can return immediately to have rabies vaccines be given if she finds that the dog does not have its vaccines. Of note the patient states that the dog is been acting completely normal since the initial incident, and it was a provoked bite. I have extensively reviewed the treatment plan and discharge instructions with the patient and their family. I have addressed all patient concerns at this time. The patient and family was made aware of what symptoms to monitor for that would warrant a return to the emergency department. Discussed the plan with the patient and family, they demonstrate verbal understanding and agreement with our assessment and plan at this time. HPI General Date/Time Provider Initiated Documentation: 05/07/19 18:26 . HPI Narrative: 18-year-old female who presents for animal bite of her left forearm. Patient was at a friend's house 2-1/2 to 3 days ago when the friends dog bit her left arm for close. No significant puncture of the skin, however over the last 48 hours she has noticed a mild bruise in that area. She denies any complaints of fever chills redness or significant swelling. She denies any significant pain aside from mild soreness in the forearm. She denies any numbness or tingling. She is uncertain about the dog immunization status, but she believes the dog is up-to-date on its rabies vaccines. It was a family dog. No other complaints at this time. Her immunizations are up-to-date including for tetanus. Related Data Home Medications Medication Instructions Recorded Confirmed albuterol sulfate 2 puff INHALATION Q6H PRN 05/21/18 05/07/19 bupropion HCl 100 mg PO DAILY 05/21/18 05/07/19 hydrocodone-acetaminophen 1 tab PO Q4H PRN #20 tab 02/06/19 05/07/19 norethindrone-e.estradiol-iron 1 tab PO DAILY 02/06/19 05/07/19 [Loestrin Fe 1.5/30 (28-Day)] sertraline [Zoloft] 25 mg PO DAILY 02/06/19 05/07/19 Previous Rx's Medication Instructions Recorded hydrocodone-acetaminophen 1 tab PO Q4H PRN #20 tab 02/06/19 Allergies Allergy/AdvReac Type Severity Reaction Status Date / Time pistachio nut Allergy Swelling/Ed Unverified 02/06/19 12:16 leydi General Stated Complaint: AnimalBite TIO: 4 Review of Systems All systems reviewed & are unremarkable except as noted in HPI and below PFSH Surgical History (Updated 02/11/19 @ 07:25 by Judie Velásquez RN) Hx of appendectomy (Chronic) Social History Smoking/Tobacco Use Status: Current every day Tobacco Type: e-cigarettes Alcohol Intake: current Alcohol Intake frequency: a few times a month Drug use: Never Substance use type: does not use Do you feel safe at home: Yes Do you feel safe in your relationship?: Yes Exam Narrative Exam Narrative: 1.Const: Well-nourished, Well-developed, appearing stated age 2.Eyes: PERRL, no conjunctival injection, and symmetrical lids. 3.ENT: Atraumatic external nose and ears. Moist MM. Neck: Symmetric, trachea midline, No thyromegaly. 4.CVS: +S1/S2, No murmurs or gallops. Peripheral pulses 2+ and equal in all extremities. Brisk capillary refill in all extremities. 5.RESP: Unlabored respiratory effort. Clear to auscultation bilaterally. No wheezes rales or rhonchi 6.GI: Soft, Nontender/Nondistended, No hepatosplenomegaly. No guarding or rebound. 7.MSK: Normocephalic, Extremities w/o deformity or ttp No cyanosis or clubbing, Normal movement of all extremities Left forearm demonstrates mild bruising over the anterior aspect of the left forearm, is present from the proximal wrist to the mid forearm. No significant swelling. No evidence of puncture wound, no redness, warmth or signs of infection drainage or discharge whatsoever. Normal flexion and extension of the wrist, normal movements of all components of the hands, radial pulse is +2 bilaterally, brisk capillary refill, normal sensation throughout. 8.Skin: Warm, Dry. Please see musculoskeletal 9.Neuro: quartz orientator II-XII grossly intact. Sensation grossly intact, no focal neurologic deficits. 10.Psych: (AAO) x3. Appropriate mood and affect Course Vital Signs Vital signs: Vital Signs Temperature 36.8 C 05/07/19 18:22 Pulse 98 H 05/07/19 18:22 Respiratory Rate 18 05/07/19 18:22 Blood Pressure 108/69 05/07/19 18:22 Pulse Oximetry 98 05/07/19 18:22 Temperature 36.8 C 05/07/19 18:22 Temperature Source Skin 05/07/19 18:22 Pulse 98 H 05/07/19 18:22 Respiratory Rate 18 05/07/19 18:22 Blood Pressure 108/69 05/07/19 18:22 Blood Pressure Position Sitting 05/07/19 18:22 Pulse Oximetry 98 05/07/19 18:22 Oxygen Delivery Method Room Air 05/07/19 18:22 Oxygen Flow Rate 0 05/07/19 18:22
== END 2019-05-07 18:41 | disposition home or self-care (01) ==
LOC: ER 18:35
PROVIDERS: Emergency Provider Student in an Organized Health Care Education/Training Program
DX: S50.12XA Contusion of left forearm, initial encounter (principal); W54.0XXA Bitten by dog, initial encounter
CPT/HCPCS: 99282